=== PATIENT | female | born 1995 | race Caucasian/White ===

== ENCOUNTER 2016-11-11 19:32 | Inpatient (IN) | payer BC ==
[~2016-11-11] VITALS: Ht 170.2 cm; Wt 62.0 kg
[~2016-11-11 19:32] MED LIST: PREN1TAB60 PO
[2016-11-11] MEDS ORDERED: OXYTOCIN 30U/ 0.9% NaCL 500ML 500 ML IV ONE (19:55)
[2016-11-11] MEDS ORDERED: LACTATED RINGERS 1,000 ML IV SCH (19:55)
[2016-11-11] MEDS ORDERED: OXYTOCIN 30U/ 0.9% NaCL 500ML 500 ML IV PRN (19:55)
[2016-11-11] MEDS ORDERED: ACETAMINOPHEN 325 MG TABLET PO PRN ×4 (20:00)
[2016-11-11] MEDS ORDERED: ALUMINUM/MAG/SIMETHICONE 30 ML UDC PO PRN (20:00)
[2016-11-11] MEDS ORDERED: OXYcodone IR 5MG TABLET PO PRN ×4 (20:00)
[2016-11-11] MEDS ORDERED: METHYLERGONOVINE 0.2 MG/ML IM PRN (20:00)
[2016-11-11] MEDS ORDERED: morphine SULFATE 10 MG/ML, 1ML IVPush PRN ×2 (20:00)
[2016-11-11] MEDS ORDERED: ONDANSETRON 2MG/ML, 2ML IVPush PRN (20:00)
[2016-11-11] MEDS ORDERED: SODIUM CITRATE/CITRIC ACID 30 ML UDC PO PRN (20:00)
[2016-11-11] MEDS ORDERED: METOCLOPRAMIDE 5 MG/ML, 2ML IVPush PRN (20:00)
[2016-11-11] MEDS ORDERED: RHOGAM FROM BLOOD BANK 1 NOTE EA IM/IV PRN (20:00)
[2016-11-11] MEDS ORDERED: DIPHENHYDRAMINE 50 MG CAPSULE PO PRN (20:00)
[2016-11-11] MEDS ORDERED: MISOPROSTOL 200 MCG TABLET PR PRN (20:00)
[2016-11-11] MEDS ORDERED: IBUPROFEN 600 MG TABLET PO PRN (20:00)
[2016-11-11] MEDS ORDERED: ZOLPIDEM 10MG TABLET PO PRN (20:00)
[2016-11-11] MEDS ORDERED: CALCIUM CARBONATE 500 MG TAB.CHEW PO PRN (20:00)
[2016-11-11] MEDS ORDERED: SODIUM CHLORIDE FLUSH 10ML SYR IVF PRN (20:00)
[2016-11-11 20:46] LABS: HEMOGLOBIN 13.1 g/dL (11.7-16.4)
[2016-11-11] MEDS ORDERED: MISOPROSTOL 200 MCG TABLET ONE ×3 (21:05→23:48)
[2016-11-11] MEDS: MISOPROSTOL 200 MCG TABLET VG SCH (21:16)
[2016-11-11] MEDS ORDERED: LIDOCAINE 1%, 20ML ONE (23:49)
[2016-11-12] MEDS ORDERED: MISOPROSTOL 200 MCG TABLET ONE (03:01)
[2016-11-12] MEDS: MISOPROSTOL 200 MCG TABLET VG SCH (03:05)
[2016-11-12] MEDS ORDERED: FENTANYL PF 100 MCG/2ML ONE (06:27)
[2016-11-12] MEDS ORDERED: FENTANYL PF 100 MCG/2ML IVPush PRN (07:00)
[2016-11-12] MEDS ORDERED: OXYTOCIN 30U/ 0.9% NaCL 500ML 500 ML ONE (07:11)
[2016-11-12] MEDS ORDERED: IBUPROFEN 600 MG TABLET ONE (09:28)
[2016-11-12 12:40] LABS: HEPATITIS C VIRUS ANTIBODY Nonreactive (Nonreactive)
[2016-11-12 13:52] VITALS: BP 113/66
[2016-11-13 06:16] LABS: HSV 2 IGG TYPE SPECIFIC <0.91 index (0.00-0.90); TOXOPLASMA GONDII IGG <3.0 IU/mL (0.0-7.1)
[2016-11-14 09:06] LABS: ANTITHROMBIN III ACTIVITY 97 % (75-135)
[2016-11-14 10:07] LABS: PARVOVIRUS B19 IGG 0.3 index (0.0-0.8); PARVOVIRUS B19 IGM 0.5 index (0.0-0.8)
[2016-11-14 18:06] LABS: HSV I/II IGM COMBO <0.91 Ratio (0.00-0.90); RUBELLA IGM <20.0 AU/mL (0.0-19.9); TOXOPLASMA GONDII IGM <3.0 AU/mL (0.0-7.9)
== END 2016-11-12 14:00 | disposition home or self-care (01) | DRG 775 ==
LOC: LDOP 19:32 → LDIP 19:52
PROVIDERS: ADMIT Student in an Organized Health Care Education/Training Program; ATTEND Student in an Organized Health Care Education/Training Program
PROC: 10E0XZZ Delivery of Products of Conception, External Approach (ICD-10-PCS; principal; 2016-11-12)
PROC: 3E0P7GC Introduction of Other Therapeutic Substance into Female Reproductive, Via Natural or Artificial Opening (ICD-10-PCS; 2016-11-12)
PROC: 3E0334Z Introduction of Serum, Toxoid and Vaccine into Peripheral Vein, Percutaneous Approach (ICD-10-PCS; 2016-11-12)
DX: O36.4XX0 Maternal care for intrauterine death, not applicable or unspecified (principal); O36.5920 Maternal care for other known or suspected poor fetal growth, second trimester, not applicable or unspecified; O26.892 Other specified pregnancy related conditions, second trimester; O34.12 Maternal care for benign tumor of corpus uteri, second trimester; D25.9 Leiomyoma of uterus, unspecified; Z67.11 Type A blood, Rh negative; Z37.1 Single stillbirth; Z3A.23 23 weeks gestation of pregnancy; Z88.5 Allergy status to narcotic agent; Z87.59 Personal history of other complications of pregnancy, childbirth and the puerperium
CPT/HCPCS: 36415; 80074; 81241; 82565; 83036; 84439; 84443; 85025; 85300; 85301; 85384; 85460; 85461; 85598; 85610; 85613; 85670; 85730; 85732; 86146; 86147; 86609; 86644; 86645; 86694; 86695; 86696; 86747; 86762; 86777; 86778; 86850; 86900; 88305; J2405; J2790; J3010

== ENCOUNTER 2017-05-13 17:29 | Outpatient (CLI) | payer BC, OTHER ==
[~2017-05-13] VITALS: Ht 170.2 cm; Wt 61.8 kg
[2017-05-13 17:46] VITALS: BP 92/53
== END 2017-05-13 18:15 | disposition home or self-care (01) ==
LOC: LDOP 17:29
PROVIDERS: ATTEND Obstetrics & Gynecology
DX: O36.8130 Decreased fetal movements, third trimester, not applicable or unspecified (principal); Z3A.00 Weeks of gestation of pregnancy not specified
CPT/HCPCS: 59025; 99211; G0463

== ENCOUNTER 2017-07-31 20:44 | Outpatient (CLI) | payer BC, OTHER ==
[~2017-07-31] VITALS: Ht 170.2 cm; Wt 66.4 kg
[2017-07-31 20:59] VITALS: BP 100/63
[2017-07-31] MEDS ORDERED: IRON1TAB60 PO (21:25)
[2017-07-31] MEDS ORDERED: ASCO100T5 PO (21:25)
== END 2017-07-31 23:10 | disposition home or self-care (01) ==
LOC: LDOP 20:44
PROVIDERS: ATTEND Obstetrics & Gynecology Maternal & Fetal Medicine
DX: O36.8130 Decreased fetal movements, third trimester, not applicable or unspecified (principal); O26.893 Other specified pregnancy related conditions, third trimester; O62.9 Abnormality of forces of labor, unspecified; N93.9 Abnormal uterine and vaginal bleeding, unspecified; Z3A.32 32 weeks gestation of pregnancy
CPT/HCPCS: 59025; 76815; 76819; 81001; 87086; 99211; G0463

== ENCOUNTER 2017-08-20 15:13 | Outpatient (CLI) | payer BC ==
[~2017-08-20] VITALS: Ht 170.2 cm; Wt 69.1 kg
[~2017-08-20 15:13] MED LIST changes: +ASCO100T5 PO; +IRON1TAB60 PO
[2017-08-20 15:36] VITALS: BP 92/53
== END 2017-08-20 17:37 | disposition home or self-care (01) ==
LOC: LDOP 15:13
PROVIDERS: ATTEND Obstetrics & Gynecology Maternal & Fetal Medicine
DX: Z34.83 Encounter for supervision of other normal pregnancy, third trimester (principal); Z3A.35 35 weeks gestation of pregnancy
CPT/HCPCS: 59025; 99211; G0463

== ENCOUNTER 2021-02-24 10:52 | Emergency (ER) | payer BC, OTHER ==
[~2021-02-24] VITALS: Ht 170.2 cm; Wt 66.0 kg
[2021-02-24 10:54] VITALS: BP 123/63
--- NOTE | 2021-02-24 11:08 | NUR ---
animal assistant: Pt ambulatory to room from lobby at this time.
--- NOTE | 2021-02-24 11:28 | NUR ---
PT AMBULATORY TO ROOM 23 W/ C/O L THUMB PAIN, SWELLING, BRUISING. PT STATES SHE WAS HOLDING HER PHONE WHILE WATCHING HER FATHER PLAY SOFTBALL WHEN THE SOFTBALL WENT INTO THE AIR AND LANDED ON PT'S L THUMB. PT C/O L THUMB PAIN, SWELLING, BRUISING AND PAIN RADIATING TO PALM OF HAND. NO ROM OF THUMB. PT RESTING ON GURNEY. NADN. MONITORS APPLIED. VSS. WARM BLANKET PROVIDED. CALL LIGHT IN REACH.
[2021-02-24] MEDS ORDERED: ACETAMINOPHEN 500 MG TABLET PO ONE (11:30)
[2021-02-24] MEDS ORDERED: IBUPROFEN 600 MG TABLET PO ONE (11:30)
[2021-02-24] MEDS ORDERED: IBUPROFEN 600 MG TABLET ONE (11:36)
[2021-02-24] MEDS ORDERED: ACETAMINOPHEN 500 MG TABLET ONE (11:37)
--- NOTE | 2021-02-24 12:53 | NUR ---
PT REFUSED SPLINT. ERP DR. DANIEL NOTIFIED.
== END 2021-02-24 13:49 | disposition home or self-care (01) ==
LOC: ED 12:09
DX: S60.221A Contusion of right hand, initial encounter (principal); W22.8XXA Striking against or struck by other objects, initial encounter; Y93.89 Activity, other specified; Y92.328 Other athletic field as the place of occurrence of the external cause; Y99.8 Other external cause status
CPT/HCPCS: 99283